=== PATIENT | female | born 1965 | race Caucasian/White ===

== ENCOUNTER → 2018-02-12 | Outpatient (CLI) | payer BC | LOC: M LRY 16:31 | DX: R50.9 Fever, unspecified (principal); R05 Cough | CPT/HCPCS: 71046 ==

== ENCOUNTER → 2018-02-12 | Outpatient (REF) | payer BC | LOC: M SFHCLERA 16:09 | DX: R35.0 Frequency of micturition (principal); J02.9 Acute pharyngitis, unspecified | CPT/HCPCS: 87086 ==

== ENCOUNTER → 2018-04-13 | Outpatient (REF) | payer BC | LOC: M SFHCLERA 14:55 | DX: R30.0 Dysuria (principal) | CPT/HCPCS: 87186 ==

== ENCOUNTER 2018-08-04 17:39 | Emergency (ER) | payer BC ==
[2018-08-04] MEDS ORDERED: KETOROLAC 60 MG/2 ML VIAL (J1885) IM ×2 (18:15)
[2018-08-04 18:17] LABS: BASO # 0.1 10^3/uL (0.0-0.2); BASO % 0.6 % (0.0-1.0); EOS # 0.4 10^3/uL (0.0-0.50); HEMOGLOBIN 13.6 g/dl (12.0-15.5); IMMATURE GRANULOCYTE % 0.3 % (0-3.0); LYMPH % 34.2 % (24.0-44.0); MEAN CORPUSCULAR HEMOGLOBIN 28.2 pg (27.0-33.0); MEAN CORPUSCULAR HGB CONC 32.4 g/dl (32.0-36.5); MEAN CORPUSCULAR VOLUME 87.1 fl (80.0-96.0); MONO # 0.7 10^3/uL (0.0-0.8); MONO % 7.3 % (0.0-5.0); NEUTROPHILS # 4.7 10^3/uL (1.8-7.7); NEUTROPHILS % 52.6 % (36.0-66.0); PLATELET COUNT, AUTOMATED 309 10^3/uL (150-450); RED BLOOD COUNT 4.82 10^6/uL (4.00-5.40); RED CELL DISTRIBUTION WIDTH 13.9 % (11.5-14.5); WHITE BLOOD COUNT 8.9 10^3/uL (4.0-10.0)
[2018-08-04 18:21] LABS: KETONE, URINE AUTO RFX TRACE mg/dL (NEGATIVE); LEUKOCYTE ESTERASE UR AUTO RFX NEGATIVE (NEGATIVE); MUCUS, URINE RFX SMALL (NEGATIVE); NITRITE, URINE AUTO RFX NEGATIVE (NEGATIVE); RBC, URINE AUTO RFX 0 /HPF (0-3); SPECIFIC GRAVITY UR AUTO RFX 1.018 (1.002-1.035); SQUAM EPITHELIAL CELL UR AURFX 1 /HPF (0-6); WBC, URINE AUTO RFX 3 /HPF (0-3)
[2018-08-04] MEDS: KETOROLAC 30 MG/ML VIAL (J1885) IV ×2 (18:24)
[2018-08-04 18:27] LABS: INR 0.94; PROTHROMBIN TIME 12.7 SECONDS (12.1-14.4)
[2018-08-04 18:28] LABS: PARTIAL THROMBOPLASTIN TIME 26.5 SECONDS (25.4-37.6)
[2018-08-04 18:44] LABS: CONTROL LINE HCG INT CTR LINE PRESENT; HCG, SERUM QUALITATIVE NEGATIVE (NEGATIVE)
[2018-08-04 18:53] LABS: ALBUMIN 3.7 GM/DL (3.2-5.2); ALBUMIN/GLOBULIN RATIO 1.12 (1.00-1.93); ALKALINE PHOSPHATASE 109 U/L (45-117); ALT/SGPT 42 U/L (12-78); AMYLASE 49 U/L (25-115); ANION GAP 11 MEQ/L (8-16); AST/SGOT 17 U/L (7-37); BILIRUBIN,DIRECT < 0.1 MG/DL (0.0-0.2); BILIRUBIN,TOTAL 0.2 MG/DL (0.2-1.0); BLOOD UREA NITROGEN 19 MG/DL (7-18); CALCIUM LEVEL 8.9 MG/DL (8.5-10.1); CARBON DIOXIDE LEVEL 25 MEQ/L (21-32); CHLORIDE LEVEL 110 MEQ/L (98-107); CREATININE FOR GFR 0.64 MG/DL (0.55-1.30); GLOMERULAR FILTRATION RATE > 60.0 (>51); GLUCOSE, FASTING 90 MG/DL (70-100); LIPASE 190 U/L (73-393); POTASSIUM SERUM 3.6 MEQ/L (3.5-5.1); SODIUM LEVEL 146 MEQ/L (136-145)
[2018-08-04] MEDS ORDERED: ISOVUE-370 76% 100ML VIAL (Q9967) As Ordered ×2 (18:55)
[2018-08-04] MEDS: PERCOCET 5MG/325MG TAB PO ×2 (20:02)
== END 2018-08-04 20:06 | disposition home or self-care (01) ==
LOC: M ED 17:39
DX: I10 Essential (primary) hypertension (principal); K76.0 Fatty (change of) liver, not elsewhere classified; N28.9 Disorder of kidney and ureter, unspecified; N20.0 Calculus of kidney; Z72.0 Tobacco use
CPT/HCPCS: Q9967

== ENCOUNTER 2018-09-09 16:17 | Inpatient (IN) | payer BC ==
[2018-09-09 17:11] LABS: HEMATOCRIT 44.1 % (36.0-47.0); HEMOGLOBIN 14.3 g/dl (12.0-15.5); MEAN CORPUSCULAR HEMOGLOBIN 27.8 pg (27.0-33.0); MEAN CORPUSCULAR HGB CONC 32.4 g/dl (32.0-36.5); MEAN CORPUSCULAR VOLUME 85.6 fl (80.0-96.0); PLATELET COUNT, AUTOMATED 311 10^3/uL (150-450); RED BLOOD COUNT 5.15 10^6/uL (4.00-5.40); RED CELL DISTRIBUTION WIDTH 14.2 % (11.5-14.5); WHITE BLOOD COUNT 8.5 10^3/uL (4.0-10.0)
[2018-09-09 17:46] LABS: ACETAMINOPHEN LEVEL < 2.0 UG/ML (10.0-30.0); ALBUMIN 3.8 GM/DL (3.2-5.2); ALBUMIN/GLOBULIN RATIO 1.19 (1.00-1.93); ALKALINE PHOSPHATASE 116 U/L (45-117); ALT/SGPT 72 U/L (12-78); ANION GAP 9 MEQ/L (8-16); AST/SGOT 23 U/L (7-37); BILIRUBIN,DIRECT 0.1 MG/DL (0.0-0.2); BILIRUBIN,TOTAL 0.3 MG/DL (0.2-1.0); BLOOD UREA NITROGEN 16 MG/DL (7-18); CALCIUM LEVEL 9.1 MG/DL (8.5-10.1); CARBON DIOXIDE LEVEL 24 MEQ/L (21-32); CHLORIDE LEVEL 111 MEQ/L (98-107); CREATININE FOR GFR 0.58 MG/DL (0.55-1.30); ETHYL ALCOHOL (ETHANOL) < 0.003 % (0.000-0.010); GLOMERULAR FILTRATION RATE > 60.0 (>51); GLUCOSE, FASTING 88 MG/DL (70-100); POTASSIUM SERUM 3.9 MEQ/L (3.5-5.1); SALICYLATE LEVEL 3.6 MG/DL (5.0-30.0); SODIUM LEVEL 144 MEQ/L (136-145)
[2018-09-09 17:52] LABS: AMPHETAMINES LEVEL URINE NEGATIVE (NEGATIVE); BARBITURATES URINE NEGATIVE (NEGATIVE)
[2018-09-09 17:53] LABS: BENZODIAZEPINES URINE NEGATIVE (NEGATIVE); CANNABINOIDS URINE POSITIVE (NEGATIVE); COCAINE METABOLITE URINE NEGATIVE (NEGATIVE); METHADONE URINE NEGATIVE (NEGATIVE); OPIATES URINE NEGATIVE (NEGATIVE); PHENCYCLIDINE URINE NEGATIVE (NEGATIVE)
[2018-09-09] MEDS ORDERED: ACETAMINOPHEN TAB 650MG DOSE (2X325MG) PO (19:45)
[2018-09-09] MEDS ORDERED: MAALOX 30 ML SUSP *UDC PO (19:45)
[2018-09-09] MEDS ORDERED: LORazepam 1 MG TAB PO (19:45)
[2018-09-09] MEDS ORDERED: MOM 30ML SUSPENSION UDC PO (19:45)
[2018-09-10] MEDS: NICOTINE 21MG/24HR 1 EA TRANSDERMAL TD (09:00)
[2018-09-10] MEDS: LOSARTAN 50 MG TAB PO (10:06)
[2018-09-10] MEDS: VENLAFAXINE **XR** 75MG CAPSULE PO (20:29)
[2018-09-10] MEDS: traZODone 50 MG TAB PO (21:22)
[2018-09-11] MEDS: LOSARTAN 50 MG TAB PO (08:17)
[2018-09-11] MEDS: NICOTINE 21MG/24HR 1 EA TRANSDERMAL TD (08:21)
[2018-09-11] MEDS: traZODone 50 MG TAB PO (20:39)
[2018-09-11] MEDS: VENLAFAXINE **XR** 75MG CAPSULE PO (20:39)
[2018-09-12] MEDS: LOSARTAN 50 MG TAB PO (08:32)
[2018-09-12] MEDS: NICOTINE 21MG/24HR 1 EA TRANSDERMAL TD (08:33)
[2018-09-12] MEDS: VENLAFAXINE **XR** 75MG CAPSULE PO (21:14)
[2018-09-12] MEDS: traZODone 50 MG TAB PO (21:14)
[2018-09-13] MEDS: NICOTINE 21MG/24HR 1 EA TRANSDERMAL TD (08:44)
[2018-09-13] MEDS: LOSARTAN 50 MG TAB PO (08:44)
[2018-09-13] MEDS: VENLAFAXINE **XR** 75MG CAPSULE PO (21:38)
[2018-09-13] MEDS: traZODone 50 MG TAB PO (21:38)
[2018-09-14] MEDS: NICOTINE 21MG/24HR 1 EA TRANSDERMAL TD (08:14)
[2018-09-14] MEDS: LOSARTAN 50 MG TAB PO (08:14)
[2018-09-14] MEDS: VENLAFAXINE **XR** 75MG CAPSULE PO (21:19)
[2018-09-14] MEDS: traZODone 50 MG TAB PO (21:19)
[2018-09-15] MEDS: NICOTINE 21MG/24HR 1 EA TRANSDERMAL TD (08:30)
[2018-09-15] MEDS: LOSARTAN 50 MG TAB PO (08:30)
[2018-09-15] MEDS: traZODone 50 MG TAB PO (21:21)
[2018-09-15] MEDS: VENLAFAXINE **XR** 75MG CAPSULE PO (21:22)
[2018-09-16] MEDS: NICOTINE 21MG/24HR 1 EA TRANSDERMAL TD (08:46)
[2018-09-16] MEDS: LOSARTAN 50 MG TAB PO (08:47)
== END 2018-09-16 12:45 | disposition home or self-care (01) | DRG 751 ==
LOC: M ED 16:17 → M ED INP 19:37 → M PSY 21:52
PROVIDERS: Psychiatry & Neurology Psychiatry
DX: F33.9 Major depressive disorder, recurrent, unspecified (principal); F41.1 Generalized anxiety disorder; I10 Essential (primary) hypertension; G47.33 Obstructive sleep apnea (adult) (pediatric); E66.9 Obesity, unspecified; Z68.41 Body mass index [BMI] 40.0-44.9, adult; Z87.442 Personal history of urinary calculi; Z79.899 Other long term (current) drug therapy; G47.00 Insomnia, unspecified; F17.210 Nicotine dependence, cigarettes, uncomplicated; Z90.49 Acquired absence of other specified parts of digestive tract

== ENCOUNTER 2018-10-23 11:37 | Emergency (ER) | payer OTHER, BC ==
[~2018-10-23 11:37] MED LIST: ENDO10TA8 PO; ENDO7.5T11 PO; LISI-538 PO; LOSA50TA88; LOSA50TA88 PO; PERCOCET PO; TRAZO50TA PO; VENL75CA47 PO
--- NOTE | 2018-10-23 12:18 | REP ---
CT Head without contrast HISTORY: Trauma COMPARISON: 09/10/2010 There is no intraparenchymal hemorrhage, acute infarct, mass or midline shift. The ventricular system is normal in appearance. There is no extra cerebral collection. There is no fracture. The visualized sinuses are clear. IMPRESSION: There is no intracranial lesion. Electronically Signed by Ramiro Rosales MD 10/23/2018 12:09 P
--- NOTE | 2018-10-23 12:26 | REP ---
CT cervical spine without contrast HISTORY: Trauma COMPARISON: None There is no acute fracture or subluxation. There is no disc bulge or herniation. Facet hypertrophy is present on the right at the C6-7 level. This produces minimal narrowing of the right C6 neural foramen. The left C6 and remaining neural foramina are patent. The intervertebral discs are normal in height. IMPRESSION: 1. There is no acute fracture or subluxation. 2. There is cervical spondylosis at the C6-7 level. Electronically Signed by Ramiro Rosales MD 10/23/2018 12:17 P
--- NOTE | 2018-10-23 12:29 | REP ---
MAXILLOFACIAL CT WITHOUT CONTRAST: HISTORY: Trauma. The right frontal sinus is hypoplastic. The sinuses are clear. The ostiomeatal units are patent. The middle and inferior nasal turbinates are partially paradoxical. There is minimal deviation of the nasal septum to the right. The cribriform plate, medial funk of the orbits and optic canals are intact. The carotid canals form a segment of the posterolateral funk of the sphenoid sinus. The sphenoid sinus septum inserts into the right internal carotid canal wall. Degenerative change is present in the temporomandibular joints. There is no fracture. Two small metallic densities are present in the anterior left maxilla. IMPRESSION: There is no acute or chronic sinusitis. Electronically Signed by Ramiro Rosales MD 10/23/2018 12:33 P
[2018-10-23] MEDS ORDERED: LIDOCAINE 1% MDV 20ML VIAL As Ordered ONE (13:14)
[2018-10-23] MEDS ORDERED: LIDOCAINE W/EPINEPHRINE 1% 20ML VIAL SC ONE (13:15)
[2018-10-23 13:29] LABS: BASO # 0.1 10^3/uL (0.0-0.2); BASO % 0.7 % (0.0-1.0); EOS # 0.3 10^3/uL (0.0-0.50); HEMATOCRIT 39.1 % (36.0-47.0); HEMOGLOBIN 12.8 g/dl (12.0-15.5); LYMPH % 27.5 % (24.0-44.0); MEAN CORPUSCULAR HGB CONC 32.7 g/dl (32.0-36.5); MEAN CORPUSCULAR VOLUME 85.6 fl (80.0-96.0); MONO # 0.6 10^3/uL (0.0-0.8); MONO % 8.1 % (0.0-5.0); NEUTROPHILS # 4.3 10^3/uL (1.8-7.7); NEUTROPHILS % 59.3 % (36.0-66.0); PLATELET COUNT, AUTOMATED 281 10^3/uL (150-450); RED BLOOD COUNT 4.57 10^6/uL (4.00-5.40); WHITE BLOOD COUNT 7.3 10^3/uL (4.0-10.0)
[2018-10-23 13:45] VITALS: BP 152/69
[2018-10-23 14:03] LABS: ALBUMIN 3.4 GM/DL (3.2-5.2); ALT/SGPT 43 U/L (12-78); BILIRUBIN,DIRECT < 0.1 MG/DL (0.0-0.2); BILIRUBIN,TOTAL 0.3 MG/DL (0.2-1.0); BLOOD UREA NITROGEN 15 MG/DL (7-18); CALCIUM LEVEL 8.6 MG/DL (8.5-10.1); CARBON DIOXIDE LEVEL 25 MEQ/L (21-32); CHLORIDE LEVEL 108 MEQ/L (98-107); CPK CREATINE PHOSPHOKINASE 109 U/L (26-192); CREATININE FOR GFR 0.51 MG/DL (0.55-1.30); GLOMERULAR FILTRATION RATE > 60.0 (>51); GLUCOSE, FASTING 91 MG/DL (70-100); MB/CK RELATIVE INDEX 1.01 (< OR =4); POTASSIUM SERUM 3.7 MEQ/L (3.5-5.1); SODIUM LEVEL 141 MEQ/L (136-145); TOTAL PROTEIN 6.5 GM/DL (6.4-8.2); TROPONIN I < 0.02 NG/ML (< 0.10)
--- NOTE | 2018-10-23 14:03 | REP ---
AP AND LATERAL LEFT KNEE, TWO VIEWS: HISTORY: Fall. There is no acute fracture or dislocation. The joint spaces are normal in appearance. IMPRESSION: There is no acute fracture or dislocation. Electronically Signed by Ramiro Rosales MD 10/23/2018 02:05 P
--- NOTE | 2018-10-23 20:23 | ECGEPIP ---
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
== END 2018-10-23 15:17 | disposition home or self-care (01) ==
LOC: EDBD 11:37 → M ED 11:37
DX: S01.01XA Laceration without foreign body of scalp, initial encounter (principal); S80.02XA Contusion of left knee, initial encounter; W01.190A Fall on same level from slipping, tripping and stumbling with subsequent striking against furniture, initial encounter; Y92.89 Other specified places as the place of occurrence of the external cause; I10 Essential (primary) hypertension; G47.00 Insomnia, unspecified; F32.9 Major depressive disorder, single episode, unspecified; Z79.899 Other long term (current) drug therapy

== ENCOUNTER 2018-11-29 11:33 | Emergency (ER) | payer BC, OTHER ==
[~2018-11-29] VITALS: Ht 157.5 cm; Wt 97.8 kg
[2018-11-29 11:33] VITALS: BP 140/77
[2018-11-29] MEDS ORDERED: TRAZ-160 PO ×2 (11:39→12:21)
[2018-11-29] MEDS ORDERED: EFFE75CA2 PO (12:21)
== END 2018-11-29 12:32 | disposition home or self-care (01) ==
LOC: M ED 11:33
DX: Z76.0 Encounter for issue of repeat prescription (principal); I25.10 Atherosclerotic heart disease of native coronary artery without angina pectoris; Z79.899 Other long term (current) drug therapy

== ENCOUNTER 2018-12-14 15:58 | Emergency (ER) | payer BC ==
[~2018-12-14] VITALS: Ht 157.5 cm; Wt 97.7 kg
[2018-12-14 15:58] VITALS: BP 146/94
[~2018-12-14 15:58] MED LIST changes: +EFFE75CA2 PO; +TRAZ-160 PO
[2018-12-14] MEDS ORDERED: VENL75CA47 PO (16:25)
[2018-12-14] MEDS ORDERED: TRAZ-160 PO (16:25)
== END 2018-12-14 16:30 | disposition home or self-care (01) ==
LOC: M ED 15:58
DX: Z76.0 Encounter for issue of repeat prescription (principal); F32.9 Major depressive disorder, single episode, unspecified; I10 Essential (primary) hypertension

== ENCOUNTER → 2018-12-20 | Outpatient (REF) | payer BC ==
[2018-12-20 18:11] LABS: AMORPHOUS SEDIMENT SMALL (NEGATIVE); APPEARANCE, URINE CLOUDY (CLEAR); BACTERIA, URINE AUTO 1+ (NEGATIVE); BILIRUBIN, URINE AUTO NEGATIVE (NEGATIVE); BLOOD, URINE BLOOD NEGATIVE (NEGATIVE); COLOR, URINE YELLOW (YELLOW); GLUCOSE, URINE (UA) AUTO NEGATIVE (NEGATIVE); KETONE, URINE AUTO NEGATIVE (NEGATIVE); LEUKOCYTE ESTERASE, URINE AUTO 2+ (NEGATIVE); MUCUS, URINE SMALL (NEGATIVE); NITRITE, URINE AUTO NEGATIVE (NEGATIVE); PROTEIN, URINE AUTO 1+ mg/dL (NEGATIVE); RBC, URINE AUTO 3 /HPF (0-3); SQUAMOUS EPITHELIAL CELL UR AU 7 /HPF (0-6); UROBILINOGEN, URINE AUTO 0.2 mg/dL (0.0-2.0); WBC, URINE AUTO 91 /HPF (0-3)
[2018-12-20 18:16] LABS: MAU/CREAT RATIO 94.4 MCG/MG (0.0-30.0)
[2018-12-20 18:23] LABS: ALBUMIN 3.7 GM/DL (3.2-5.2); ALT/SGPT 39 U/L (12-78); BILIRUBIN,TOTAL 0.3 MG/DL (0.2-1.0); BLOOD UREA NITROGEN 16 MG/DL (7-18); CARBON DIOXIDE LEVEL 27 MEQ/L (21-32); CHLORIDE LEVEL 110 MEQ/L (98-107); CHOLESTEROL LEVEL 209 MG/DL (<200); CHOLESTEROL RISK RATIO 4.019 (<5); CREATININE FOR GFR 0.52 MG/DL (0.55-1.30); GLOMERULAR FILTRATION RATE > 60.0 (>51); GLUCOSE, FASTING 87 MG/DL (70-100); HDL CHOLESTEROL 52 MG/DL (>40); LDL CHOLESTEROL 128 MG/DL (<100); NON-HDL-C 157 MG/DL; POTASSIUM SERUM 4.7 MEQ/L (3.5-5.1); SODIUM LEVEL 144 MEQ/L (136-145); TOTAL PROTEIN 6.8 GM/DL (6.4-8.2); TRIGLYCERIDES LEVEL 144 MG/DL (<150)
[2018-12-20 18:30] LABS: HEMOGLOBIN A1c 6.4 %
== END ==
LOC: M LAB REF 17:16
PROVIDERS: ATTEND Family Medicine
DX: Z13.228 Encounter for screening for other metabolic disorders (principal); E11.9 Type 2 diabetes mellitus without complications; R55 Syncope and collapse

== ENCOUNTER → 2019-01-02 | Outpatient (REF) | payer BC ==
[2019-01-02 18:06] LABS: INFLUENZA A AMPLIFICATION NEGATIVE (NEGATIVE); INFLUENZA B AMPLIFICATION NEGATIVE (NEGATIVE)
== END ==
LOC: M LAB REF 16:29
PROVIDERS: ATTEND Physician Assistant
DX: J11.1 Influenza due to unidentified influenza virus with other respiratory manifestations (principal)

== ENCOUNTER 2019-07-21 15:07 | Emergency (ER) | payer BC ==
[~2019-07-21] VITALS: Ht 157.5 cm; Wt 95.2 kg
[~2019-07-21 15:07] MED LIST changes: -TRAZ-160 PO; +TRAZ-252 PO; +TRAZ1TAB10 PO; -TRAZO50TA PO
[2019-07-21] MEDS ORDERED: ATOR1TAB19 PO (15:35)
[2019-07-21] MEDS ORDERED: KETOROLAC 30 MG/ML VIAL (J1885) IV ONE (17:15)
[2019-07-21] MEDS ORDERED: NS 1,000 ML IV ONE (17:15)
[2019-07-21 17:35] LABS: BASO # 0.1 10^3/uL (0.0-0.2); EOS # 0.5 10^3/uL (0.0-0.5); EOS % 6.4 % (0.0-3.0); HEMATOCRIT 41.4 % (36.0-47.0); HEMOGLOBIN 13.1 g/dl (12.0-15.5); LYMPH % 36.4 % (24.0-44.0); MEAN CORPUSCULAR HEMOGLOBIN 28.4 pg (27.0-33.0); MEAN CORPUSCULAR HGB CONC 31.6 g/dl (32.0-36.5); MEAN CORPUSCULAR VOLUME 89.6 fl (80.0-96.0); MONO # 0.7 10^3/uL (0.0-0.8); MONO % 8.4 % (0.0-5.0); NEUTROPHILS # 3.9 10^3/uL (1.5-8.5); NEUTROPHILS % 47.6 % (36.0-66.0); PLATELET COUNT, AUTOMATED 290 10^3/uL (150-450); RED BLOOD COUNT 4.62 10^6/uL (4.00-5.40); WHITE BLOOD COUNT 8.3 10^3/uL (4.0-10.0)
--- NOTE | 2019-07-21 18:01 | REPVR ---
PROCEDURE INFORMATION: Exam: CT Abdomen and pelvis without contrast Exam date and time: 07/21/2019 5:05 PM Clinical history: 53 years old, female; Abdominal pain; Flank; Right; Additional info: R flank pain TECHNIQUE: Imaging protocol: Computed tomography of the abdomen and pelvis without contrast. Radiation optimization: All CT scans at this facility use at least one of these dose optimization techniques: automated exposure control; mA and/or kV adjustment per patient size (includes targeted exams where dose is matched to clinical indication); or iterative reconstruction. COMPARISON: CT ABD PELVIS WITH CONTRAST 08/04/2018 6:57 PM FINDINGS: Lungs: There is bibasilar compressive atelectasis. Heart: Small pericardial effusion. Liver: Normal. No mass. Gallbladder and bile ducts: There has been a cholecystectomy. Pancreas: Normal. No ductal dilation. Spleen: Normal. No splenomegaly. Adrenals: Normal. No mass. Kidneys and ureters: There is reduced right renal volume associated with a lobular contour consistent with parenchymal scarring, findings which are stable in appearance. Small nonobstructive calculi demonstrated in the peripheral subcapsular aspect of the right kidney. There is a 3 mm mm. obstructive ureteral calculus located on the inner surface of the right UV junction resulting in minimal proximal hydroureteronephrosis. There is no significant periureteral and perinephric stranding. No urinoma demonstrated. Stomach and bowel: A haustral appearance of the transverse colon. Finding of uncertain significance. Clinical correlation to exclude changes related to colitis either subacute or chronic suggest. Appendix: No evidence of appendicitis. Intraperitoneal space: Unremarkable. No free air. No significant fluid collection. Vasculature: Unremarkable. No abdominal aortic aneurysm. Lymph nodes: Unremarkable. No enlarged lymph nodes. Bladder: Unremarkable as visualized. Reproductive: Unremarkable as visualized. Bones/joints: Mild central spinal stenosis L4-5. Stable compression deformity at L1. The spine demonstrates mild degenerative changes. Soft tissues: Unremarkable. IMPRESSION: 1. There has been a cholecystectomy. 2. There is a 3 mm mm. obstructive ureteral calculus located on the inner surface of the right UV junction resulting in minimal proximal hydroureteronephrosis. There is no significant periureteral and perinephric stranding. No urinoma demonstrated. 3. A haustral appearance of the transverse colon. Finding of uncertain significance. Clinical correlation to exclude changes related to colitis either subacute or chronic suggest. Electronically signed by: Jason Francisco On 07/21/2019 18:01:20 PM
[2019-07-21] MEDS ORDERED: FLOM0.4C39 PO (19:14)
[2019-07-21] MEDS ORDERED: BACT800T5 PO (19:14)
[2019-07-21] MEDS ORDERED: KETO10TAB PO (19:16)
[2019-07-21 19:23] VITALS: BP 128/63
== END 2019-07-21 19:25 | disposition home or self-care (01) ==
LOC: M ED 15:07
DX: N39.0 Urinary tract infection, site not specified (principal); N20.1 Calculus of ureter; E66.9 Obesity, unspecified; I10 Essential (primary) hypertension; E78.5 Hyperlipidemia, unspecified; G47.30 Sleep apnea, unspecified; F41.9 Anxiety disorder, unspecified; F32.9 Major depressive disorder, single episode, unspecified; F17.200 Nicotine dependence, unspecified, uncomplicated; Z87.442 Personal history of urinary calculi; Z79.899 Other long term (current) drug therapy
CPT/HCPCS: 74176; 80047; 81001; 85025; 87088; 87186; 96361; 96374; 99284; J1885

== ENCOUNTER 2019-12-11 08:36 | Emergency (ER) | payer BC ==
[~2019-12-11] VITALS: Ht 157.5 cm; Wt 102.2 kg
[~2019-12-11 08:36] MED LIST changes: +ATOR1TAB19 PO; +BACT800T5 PO; +FLOM0.4C39 PO; +KETO10TAB PO
[2019-12-11 10:14] LABS: BASO # 0.1 10^3/uL (0.0-0.2); BASO % 0.5 % (0.0-1.0); EOS # 0.2 10^3/uL (0.0-0.5); EOS % 2.3 % (0.0-3.0); HEMATOCRIT 41.9 % (36.0-47.0); HEMOGLOBIN 13.5 g/dl (12.0-15.5); LYMPH # 1.5 10^3/uL (1.5-5.0); LYMPH % 14.8 % (24.0-44.0); MEAN CORPUSCULAR HEMOGLOBIN 28.1 pg (27.0-33.0); MEAN CORPUSCULAR HGB CONC 32.2 g/dl (32.0-36.5); MEAN CORPUSCULAR VOLUME 87.1 fl (80.0-96.0); MONO # 0.6 10^3/uL (0.0-0.8); MONO % 6.3 % (0.0-5.0); NEUTROPHILS # 7.5 10^3/uL (1.5-8.5); NEUTROPHILS % 75.5 % (36.0-66.0); PLATELET COUNT, AUTOMATED 305 10^3/uL (150-450); RED BLOOD COUNT 4.81 10^6/uL (4.00-5.40)
[2019-12-11 10:45] LABS: ALT/SGPT 32 U/L (12-78); BLOOD UREA NITROGEN 18 MG/DL (7-18); CALCIUM LEVEL 9.1 MG/DL (8.5-10.1); CARBON DIOXIDE LEVEL 29 MEQ/L (21-32); CHLORIDE LEVEL 112 MEQ/L (98-107); CREATININE FOR GFR 0.56 MG/DL (0.55-1.30); GLOMERULAR FILTRATION RATE > 60.0 (>51); GLUCOSE, FASTING 126 MG/DL (70-100); POTASSIUM SERUM 4.5 MEQ/L (3.5-5.1); SODIUM LEVEL 144 MEQ/L (136-145)
[2019-12-11 10:46] LABS: ALBUMIN 3.4 GM/DL (3.2-5.2); BILIRUBIN,DIRECT < 0.1 MG/DL (0.0-0.2); BILIRUBIN,TOTAL 0.2 MG/DL (0.2-1.0); LIPASE 60 U/L (73-393); TOTAL PROTEIN 6.6 GM/DL (6.4-8.2)
--- NOTE | 2019-12-11 11:21 | REP ---
Clinical: Right flank pain. Technique: Axial noncontrast images from the thoracic inlet to the upper abdomen with coronal and sagittal re-formations. Comparison: 07/21/2019, 08/04/2018. Findings: The right kidney demonstrates stable cortical scarring. Mild right hydronephrosis with mild perinephric and periureteral stranding is appreciated although no intrarenal or obstructing ureteral calculi are identified. The left kidney/ureter and bladder appear normal. Liver is upper limits of normal without focal hepatic lesion identified. Spleen, pancreas, and bilateral adrenal glands are normal. Evidence for prior cholecystectomy noted. The enteric system is without obstruction or acute inflammatory process. Pelvis demonstrates normal bladder and age-appropriate uterus/adnexa. No pelvic fluid or ascites. No free air. No significant adenopathy. Abdominal aorta without aneurysm. Skeletal structures demonstrate age-related changes. Lung bases are clear. Impression: 1. Chronic cortical scarring to the right kidney with mild hydronephrosis and subtle perinephric/periureteral stranding raises the possibility of pyelonephritis. No intrarenal or obstructing ureteral calculi identified. Left kidney/ureter and bladder appear grossly normal. 2. No further acute abdominopelvic pathology appreciated. Electronically Signed by Nicolas Clemons MD 12/11/2019 11:13 A
[2019-12-11] MEDS ORDERED: CEFD1CAP8 PO (11:41)
[2019-12-11] MEDS ORDERED: cefTRIAXone SOD 1 GM in D5W MINI-BAG PLUS 50 ML IV ONE (11:45)
[2019-12-11] MEDS ORDERED: CIPROFLOXACIN 400 MG in IV 1 EA IV ONE (11:45)
[2019-12-11 14:15] VITALS: BP 158/100
--- NOTE | 2019-12-12 07:08 | ED PDOC ---
Post-Departure Follow-Up radiology rpeort faxed to Lissa Gaston MD Dec 12, 2019 07:08
== END 2019-12-11 14:23 | disposition home or self-care (01) ==
LOC: M ED 08:36
DX: N10 Acute pyelonephritis (principal); N39.0 Urinary tract infection, site not specified; E11.9 Type 2 diabetes mellitus without complications; I10 Essential (primary) hypertension; E66.9 Obesity, unspecified; Z87.442 Personal history of urinary calculi; Z78.0 Asymptomatic menopausal state; Z79.899 Other long term (current) drug therapy; F17.210 Nicotine dependence, cigarettes, uncomplicated
CPT/HCPCS: 74176; 80048; 80076; 81001; 83690; 85025; 87088; 87186; 96365; 96366; 99284; J0696

== ENCOUNTER → 2020-06-21 | Outpatient (REF) | payer BC ==
[~2020-06-21] MED LIST changes: +CEFD1CAP8 PO
[2020-06-21 19:23] LABS: APPEARANCE, URINE CLEAR (CLEAR); BACTERIA, URINE AUTO 1+ (NEGATIVE); BILIRUBIN, URINE AUTO NEGATIVE (NEGATIVE); BLOOD, URINE BLOOD NEGATIVE (NEGATIVE); COLOR, URINE YELLOW (YELLOW); GLUCOSE, URINE (UA) AUTO NEGATIVE (NEGATIVE); KETONE, URINE AUTO NEGATIVE (NEGATIVE); LEUKOCYTE ESTERASE, URINE AUTO NEGATIVE (NEGATIVE); MUCUS, URINE SMALL (NEGATIVE); NITRITE, URINE AUTO NEGATIVE (NEGATIVE); PROTEIN, URINE AUTO 1+ mg/dL (NEGATIVE); RBC, URINE AUTO 1 /HPF (0-3); SPECIFIC GRAVITY URINE AUTO 1.018 (1.002-1.035); SQUAMOUS EPITHELIAL CELL UR AU 1 /HPF (0-6); UROBILINOGEN, URINE AUTO 0.2 mg/dL (0.0-2.0); WBC, URINE AUTO 1 /HPF (0-3)
== END ==
LOC: M LAB REF 17:29
PROVIDERS: ATTEND Nurse Practitioner Family
DX: Z00.01 Encounter for general adult medical examination with abnormal findings (principal); R30.0 Dysuria; E78.5 Hyperlipidemia, unspecified; K64.8 Other hemorrhoids; G47.00 Insomnia, unspecified; E11.9 Type 2 diabetes mellitus without complications; R10.9 Unspecified abdominal pain; E55.9 Vitamin D deficiency, unspecified; I10 Essential (primary) hypertension; Z13.9 Encounter for screening, unspecified

== ENCOUNTER → 2020-06-23 | Outpatient (REF) | payer BC ==
[2020-06-23 14:59] LABS: ALBUMIN 3.3 GM/DL (3.2-5.2); ALT/SGPT 29 U/L (12-78); BILIRUBIN,TOTAL 0.3 MG/DL (0.2-1.0); BLOOD UREA NITROGEN 17 MG/DL (7-18); CALCIUM LEVEL 8.8 MG/DL (8.5-10.1); CARBON DIOXIDE LEVEL 25 MEQ/L (21-32); CHLORIDE LEVEL 111 MEQ/L (98-107); CHOLESTEROL LEVEL 189 MG/DL (<200); CHOLESTEROL RISK RATIO 3.566 (<5); CREATININE FOR GFR 0.49 MG/DL (0.55-1.30); FREE T4 0.97 NG/DL (0.76-1.46); GLOMERULAR FILTRATION RATE > 60.0 (>51); GLUCOSE, FASTING 128 MG/DL (70-100); HDL CHOLESTEROL 53 MG/DL (>40); LDL CHOLESTEROL 113 MG/DL (<100); NON-HDL-C 136 MG/DL; POTASSIUM SERUM 3.8 MEQ/L (3.5-5.1); SODIUM LEVEL 141 MEQ/L (136-145); TOTAL PROTEIN 6.6 GM/DL (6.4-8.2); TRIGLYCERIDES LEVEL 113 MG/DL (<150)
[2020-06-23 15:00] LABS: TOTAL 25(OH) VITAMIN D 34.7 NG/ML (30.0-100.0)
[2020-06-23 15:08] LABS: BASO # 0.1 10^3/uL (0.0-0.2); BASO % 0.8 % (0.0-1.0); EOS # 0.4 10^3/uL (0.0-0.5); EOS % 6.5 % (0.0-3.0); HEMATOCRIT 43.1 % (36.0-47.0); HEMOGLOBIN 13.8 g/dl (12.0-15.5); LYMPH # 2.3 10^3/uL (1.5-5.0); LYMPH % 35.4 % (24.0-44.0); MEAN CORPUSCULAR HEMOGLOBIN 27.8 pg (27.0-33.0); MEAN CORPUSCULAR VOLUME 86.7 fl (80.0-96.0); MONO # 0.5 10^3/uL (0.0-0.8); MONO % 7.7 % (0.0-5.0); NEUTROPHILS # 3.2 10^3/uL (1.5-8.5); NEUTROPHILS % 48.8 % (36.0-66.0); PLATELET COUNT, AUTOMATED 303 10^3/uL (150-450); RED BLOOD COUNT 4.97 10^6/uL (4.00-5.40); WHITE BLOOD COUNT 6.5 10^3/uL (4.0-10.0)
[2020-06-23 16:31] LABS: HEMOGLOBIN A1c 6.7 %
== END ==
LOC: M LAB REF 08:31
PROVIDERS: ATTEND Nurse Practitioner Family
DX: Z00.01 Encounter for general adult medical examination with abnormal findings (principal); R30.0 Dysuria; E78.5 Hyperlipidemia, unspecified; K64.8 Other hemorrhoids; G47.00 Insomnia, unspecified; E11.9 Type 2 diabetes mellitus without complications; R10.9 Unspecified abdominal pain; E55.9 Vitamin D deficiency, unspecified; I10 Essential (primary) hypertension; Z13.9 Encounter for screening, unspecified

== ENCOUNTER 2021-05-24 17:11 | Emergency (ER) | payer BC ==
[~2021-05-24] VITALS: Ht 157.5 cm; Wt 104.5 kg
[~2021-05-24 17:11] MED LIST changes: -CEFD1CAP8 PO; +CEFD300C41 PO; -LISI-538 PO; +LISI20TA33 PO; +LOSA50TA28; +LOSA50TA28 PO; -LOSA50TA88; -LOSA50TA88 PO
[2021-05-25] MEDS ORDERED: ACETAMINOPHEN 325 MG TAB PO ONE (00:45)
[2021-05-25] MEDS ORDERED: KETOROLAC TROMETHAMINE 10 MG TAB PO ONE (02:25)
[2021-05-25 02:42] VITALS: BP 127/81
== END 2021-05-25 02:45 | disposition home or self-care (01) ==
LOC: M ED 17:11
DX: R16.0 Hepatomegaly, not elsewhere classified (principal); K42.9 Umbilical hernia without obstruction or gangrene; I10 Essential (primary) hypertension; E11.9 Type 2 diabetes mellitus without complications; E78.5 Hyperlipidemia, unspecified; G47.30 Sleep apnea, unspecified; Z79.899 Other long term (current) drug therapy; F17.210 Nicotine dependence, cigarettes, uncomplicated

== ENCOUNTER 2023-01-23 14:57 | Emergency (ER) | payer OTHER ==
[~2023-01-23] VITALS: Ht 157.5 cm; Wt 102.5 kg
[2023-01-23] MEDS ORDERED: TRUL0.5I (15:08)
[2023-01-23] MEDS ORDERED: GABA-1171 (15:08)
[2023-01-23] MEDS ORDERED: METF500T13 (15:08)
[2023-01-23] MEDS ORDERED: ATOR40TA75 (15:08)
[2023-01-23] MEDS ORDERED: NITR0.4S14 (15:08)
[2023-01-23] MEDS ORDERED: ASPI-226 (15:08)
[2023-01-23] MEDS ORDERED: AMLO1TAB25 (15:08)
[2023-01-23] MEDS ORDERED: LOSA100T8 (15:08)
[2023-01-23 15:54] LABS: BASO # 0.1 10^3/uL (0.0-0.2); BASO % 0.8 % (0.0-1.0); EOS # 0.6 10^3/uL (0.0-0.5); EOS % 6.3 % (0.0-3.0); HEMATOCRIT 43.1 % (36.0-47.0); HEMOGLOBIN 13.7 g/dl (12.0-15.5); LYMPH # 2.9 10^3/uL (1.5-5.0); LYMPH % 31.8 % (24.0-44.0); MEAN CORPUSCULAR HEMOGLOBIN 27.6 pg (27.0-33.0); MEAN CORPUSCULAR HGB CONC 31.8 g/dl (32.0-36.5); MEAN CORPUSCULAR VOLUME 86.9 fl (80.0-96.0); MONO # 0.6 10^3/uL (0.0-0.8); MONO % 6.8 % (2.0-8.0); NEUTROPHILS # 4.9 10^3/uL (1.5-8.5); NEUTROPHILS % 54.2 % (36.0-66.0); PLATELET COUNT, AUTOMATED 301 10^3/uL (150-450); RED BLOOD COUNT 4.96 10^6/uL (4.00-5.40); WHITE BLOOD COUNT 9.1 10^3/uL (4.0-10.0)
[2023-01-23 16:21] LABS: LIPASE 26 U/L (12-53)
[2023-01-23 16:48] LABS: ALBUMIN 3.4 G/DL (3.2-5.2); ALKALINE PHOSPHATASE 103 U/L (46-116); ALT/SGPT 43 U/L (7.0-40); AST/SGOT 25 U/L (<34); BILIRUBIN,DIRECT 0.1 MG/DL (<0.4); BILIRUBIN,TOTAL 0.3 MG/DL (0.3-1.2); BLOOD UREA NITROGEN 16 MG/DL (9-23); CALCIUM LEVEL 9.2 MG/DL (8.5-10.1); CARBON DIOXIDE LEVEL 28 MMOL/L (20-31); CHLORIDE LEVEL 108 MMOL/L (98-107); GLOMERULAR FILTRATION RATE > 60.0 (>51); GLUCOSE, FASTING 149 MG/DL (60-100); POTASSIUM SERUM 4.6 MMOL/L (3.5-5.1); SODIUM LEVEL 142 MMOL/L (136-145); TOTAL PROTEIN 6.2 G/DL (5.7-8.2)
[2023-01-23] MEDS ORDERED: ACETAMINOPHEN 1000MG 100ML IV BAG IV ONE (19:50)
[2023-01-23] MEDS ORDERED: ISOVUE-370 76% 100ML VIAL As Ordered ONE (19:51)
[2023-01-23] MEDS ORDERED: PANTOPRAZOLE 40MG VIAL IV ONE (20:05)
[2023-01-23 21:28] LABS: CK-MB VALUE MASS 1.1 NG/ML (<3.6)
[2023-01-23 21:30] LABS: MB/CK RELATIVE INDEX 0.8 (< OR =4)
[2023-01-23] MEDS ORDERED: OMEP40CA4 PO (21:31)
[2023-01-23 22:19] LABS: CK-MB VALUE MASS < 1.0 NG/ML (<3.6); CPK CREATINE PHOSPHOKINASE 131 U/L (34-145); MB/CK RELATIVE INDEX 0.76 (< OR =4)
[2023-01-23 22:49] VITALS: BP 140/74
== END 2023-01-23 22:52 | disposition home or self-care (01) ==
LOC: M ED 14:57
DX: R10.9 Unspecified abdominal pain (principal); N20.0 Calculus of kidney; K44.9 Diaphragmatic hernia without obstruction or gangrene; K21.9 Gastro-esophageal reflux disease without esophagitis; E11.9 Type 2 diabetes mellitus without complications; I10 Essential (primary) hypertension; F32.A Depression, unspecified; Z87.442 Personal history of urinary calculi; F41.9 Anxiety disorder, unspecified; E78.5 Hyperlipidemia, unspecified; G47.33 Obstructive sleep apnea (adult) (pediatric); Z90.49 Acquired absence of other specified parts of digestive tract; Z90.89 Acquired absence of other organs; Z98.51 Tubal ligation status; F17.200 Nicotine dependence, unspecified, uncomplicated; Z79.82 Long term (current) use of aspirin; Z79.84 Long term (current) use of oral hypoglycemic drugs; Z79.899 Other long term (current) drug therapy
CPT/HCPCS: 71046; 74177; 80048; 80076; 81000; 81015; 82550; 82553; 83690; 85025; 86850; 86900; 86901; 93005; 96374; 96375; 99284; C9113; J0131; Q9967

== ENCOUNTER 2024-06-27 10:38 | Emergency (ER) | payer OTHER ==
[~2024-06-27] VITALS: Ht 157.5 cm; Wt 95.7 kg
[2024-06-27 10:38] VITALS: TEMP 97.5; O2SAT 97
[~2024-06-27 10:38] MED LIST changes: +AMLO1TAB25; +ASPI-226; +ATOR40TA75; +BENZ200C70 PO; +CEFD1CAP9 PO; -CEFD300C41 PO; +GABA-1171; +LOSA100T8; +METF500T13; +NITR0.4S14; +OMEP40CA4 PO; +TRUL0.5I; +VENTAER INH
[2024-06-27] MEDS: LOSARTAN 50MG TABLET PO ONE (11:14)
[2024-06-27] MEDS: ACETAMINOPHEN TAB 650MG DOSE (2X325MG) PO ONE (11:15)
[2024-06-27 12:19] VITALS: BP 147/95
== END 2024-06-27 12:20 | disposition home or self-care (01) ==
LOC: M ED 10:38
DX: U07.1 COVID-19 (principal); E11.9 Type 2 diabetes mellitus without complications; I10 Essential (primary) hypertension; F17.210 Nicotine dependence, cigarettes, uncomplicated; Z79.84 Long term (current) use of oral hypoglycemic drugs; Z79.899 Other long term (current) drug therapy

== ENCOUNTER → 2025-10-12 | Outpatient (CLI) | payer OTHER ==
[~2025-10-12] MED LIST changes: -FLOM0.4C39 PO; +TAMS-18 PO
[2025-10-12 12:36] LABS: PLATELET COUNT, AUTOMATED 321 10^3/uL (150-450)
[2025-10-12 12:52] LABS: ESTIMATED AVERAGE GLUCOSE 255.0 MG/DL (60-110)
[2025-10-12 13:22] LABS: ALT/SGPT 25 U/L (7.0-40); AST/SGOT 12 U/L (<34); CALCIUM LEVEL 9.5 MG/DL (8.3-10.6); CARBON DIOXIDE LEVEL 29 MMOL/L (20-31); CHLORIDE LEVEL 108 MMOL/L (98-107); CHOLESTEROL LEVEL 137 MG/DL (<200); CHOLESTEROL RISK RATIO 2.15 (<5); CREATININE FOR GFR 0.44 MG/DL (0.55-1.30); GLOMERULAR FILTRATION RATE > 90.0 (>45); LDL CHOLESTEROL 52.3 MG/DL (<100); NON-HDL-C 73.5 MG/DL; POTASSIUM SERUM 4.7 MMOL/L (3.5-5.1); SODIUM LEVEL 144 MMOL/L (136-145); TRIGLYCERIDES LEVEL 106 MG/DL (<150)
== END ==
LOC: M LAB 11:20
PROVIDERS: ATTEND Internal Medicine
DX: E11.40 Type 2 diabetes mellitus with diabetic neuropathy, unspecified (principal); E66.9 Obesity, unspecified; E78.5 Hyperlipidemia, unspecified

== ENCOUNTER 2025-10-15 13:44 | Emergency (ER) | payer OTHER ==
[~2025-10-15] VITALS: Ht 157.5 cm; Wt 89.7 kg
[2025-10-15] MEDS: ONDANSETRON 4MG ORAL DISINTEGRATING TAB PO ONE (14:21)
[2025-10-15] MEDS: ACETAMINOPHEN 500 MG TAB PO ONE (14:22)
[2025-10-15] MEDS: BENZONATATE 100 MG CAPSULE PO ONE (14:48)
[2025-10-15] MEDS ORDERED: OSEL75CA PO (15:39)
[2025-10-15] MEDS ORDERED: BENZ200C70 PO (15:39)
[2025-10-15 15:45] VITALS: BP 150/72; TEMP 98.5; O2SAT 92
[2025-10-15] MEDS: OSELTAMIVIR PHOSPHATE 75 MG CAP PO ONE ×2 (15:53)
== END 2025-10-15 15:58 | disposition home or self-care (01) ==
LOC: M ED 13:44
DX: J09.X2 Influenza due to identified novel influenza A virus with other respiratory manifestations (principal); E11.9 Type 2 diabetes mellitus without complications; I10 Essential (primary) hypertension; F17.210 Nicotine dependence, cigarettes, uncomplicated; Z79.84 Long term (current) use of oral hypoglycemic drugs; Z79.899 Other long term (current) drug therapy